=== PATIENT | female | born 1975 | race Caucasian/White ===

== ENCOUNTER → 2016-11-07 | Outpatient (CLI) | payer OTHER ==
[~2016-11-07] MED LIST: ABILIFY5 MG; AMITRIPTYLINE25 MG; CHOLESTEROL MED; COQ(10)1010 MG; CYMBALTA60 MG PO; FIORICET 325 MG1 TAB PO; FLONASE 0.05% 121 EA NAS; FLONASE0.05 MG/AC NS; GABAPENTIN100 M1 PO; HYDROCODONE BIT1 T11 PO; LAMICTAL ODT100 MG MM; LAMICTAL100 MG PO; LAMICTAL200 MG PO; LAMICTAL25 MG PO; LISINOPRIL5 MG PO; LOVASTATIN20 MG PO; NEURONTIN100 MG PO; NEURONTIN300 MG PO; NORVASC5 MG; PHENERGAN W/DM120 ML PO; PREDNICOT10 MG PO; PROAIR HFA0.09 MG/AC INH; TRAD5TAB1 PO; VIBRAMYCIN100 MG PO; VICO75300 PO; VICODIN 500 MG-1 TAB PO; VICTOZA6 MG/ML; WELLBUTRIN SR150 MG; ZITHROMAX Z PA250 MG PO; ZITHROMAX250 MG PO; ZOFRAN ODT4 MG SL; ZOLOFT100 MG PO; ZYRTEC10 M2 PO
[2016-11-07 13:08] LABS: ALBUMIN 3.9 gm/dl (3.1-4.5); ALKALINE PHOSPHATASE 109 U/L (45-117); BILIRUBIN, TOTAL 0.4 mg/dl (0.2-1.0); BUN 12 mg/dl (7-24); CARBON DIOXIDE 25 mmol/L (21-32); CHLORIDE 109 mmol/L (98-107); CHOLESTEROL 182 mg/dL (<200); CPK 94 U/L (26-192); EST GLOM FILT AFRICAN AMERICAN > 60 ml/min; GLUCOSE 102 mg/dL (65-99); HDL CHOLESTEROL 45 mg/dl (40-60); LDL CHOLESTEROL 101 mg/dL (9-159); POTASSIUM 4.1 mmol/L (3.5-5.1); SGOT/AST 14 IU/L (3-35); SGPT/ALT 40 U/L (12-78); SODIUM 144 mmol/L (136-145); TRIGLYCERIDES 178 mg/dl (<150); VLDL CHOLESTEROL 36 mg/dL (6-40)
[2016-11-07 13:41] LABS: HEMOGLOBIN A1c 5.7 % (4.8-5.6)
== END | disposition home or self-care (01) ==
LOC: LAB 12:09
PROVIDERS: Family Medicine
DX: E78.00 Pure hypercholesterolemia, unspecified (principal); E55.9 Vitamin D deficiency, unspecified; E11.9 Type 2 diabetes mellitus without complications

== ENCOUNTER → 2017-02-15 | Outpatient (CLI) | payer OTHER | END | disposition home or self-care (01) | LOC: RAD 10:58 | DX: R05 Cough (principal); F17.200 Nicotine dependence, unspecified, uncomplicated; E11.9 Type 2 diabetes mellitus without complications; I10 Essential (primary) hypertension ==

== ENCOUNTER → 2017-03-04 | Outpatient (CLI) | payer OTHER ==
[2017-03-04 10:41] LABS: HEMOGLOBIN 13.6 g/dl (12.0-16.0); MEAN CELL VOLUME 90.5 fl (81.0-99.0); MEAN CORPUSCULAR HGB CONC 33.2 g/dl (33.0-37.0); MEAN PLATELET VOLUME 10.2 fl (9.6-12.3); RED BLOOD COUNT 4.53 10*6/uL (4.10-5.10); RED CELL DISTRI WIDTH 12.6 % (0-14.5); WHITE BLOOD COUNT 8.5 10*3/uL (4.8-10.8)
[2017-03-04 11:07] LABS: ALBUMIN 3.8 gm/dl (3.1-4.5); ALKALINE PHOSPHATASE 117 U/L (45-117); BUN 10 mg/dl (7-24); CHLORIDE 111 mmol/L (98-107); CHOLESTEROL 176 mg/dL (<200); CREATININE 0.92 mg/dL (0.55-1.02); HDL CHOLESTEROL 43 mg/dl (40-60); LDL CHOLESTEROL 101 mg/dL (9-159); SGOT/AST 11 IU/L (3-35); SGPT/ALT 23 U/L (12-78); SODIUM 143 mmol/L (136-145); TRIGLYCERIDES 159 mg/dl (<150); VLDL CHOLESTEROL 32 mg/dL (6-40)
== END ==
LOC: LAB 02-16 01:23
PROVIDERS: Family Medicine
DX: E78.00 Pure hypercholesterolemia, unspecified (principal); E55.9 Vitamin D deficiency, unspecified; E11.9 Type 2 diabetes mellitus without complications; R05 Cough

== ENCOUNTER → 2017-07-01 | Outpatient (CLI) | payer OTHER ==
[2017-07-01 10:12] LABS: HEMATOCRIT 40.8 % (37.0-47.0); HEMOGLOBIN 13.5 g/dl (12.0-16.0); MEAN CELL VOLUME 90.7 fl (81.0-99.0); MEAN CORPUSCULAR HGB CONC 33.1 g/dl (33.0-37.0); MEAN PLATELET VOLUME 10.4 fl (9.6-12.3); RED BLOOD COUNT 4.5 10*6/uL (4.10-5.10); RED CELL DISTRI WIDTH 13.1 % (0-14.5)
[2017-07-01 10:41] LABS: ALBUMIN 3.7 gm/dl (3.1-4.5); BUN 12 mg/dl (7-24); CHLORIDE 109 mmol/L (98-107); CHOLESTEROL 152 mg/dL (<200); POTASSIUM 3.7 mmol/L (3.5-5.1); SGOT/AST 10 IU/L (3-35); SGPT/ALT 24 U/L (12-78); SODIUM 141 mmol/L (136-145)
[2017-07-01 10:44] LABS: ALKALINE PHOSPHATASE 104 U/L (45-117); CPK 110 U/L (26-192); HDL CHOLESTEROL 44 mg/dl (40-60); LDL CHOLESTEROL 81 mg/dL (9-159); TOTAL PROTEIN 6.8 gm/dL (6.4-8.2); TRIGLYCERIDES 134 mg/dl (<150); VLDL CHOLESTEROL 27 mg/dL (6-40)
== END | disposition home or self-care (01) ==
LOC: LAB 09:33
PROVIDERS: Family Medicine
DX: F41.1 Generalized anxiety disorder (principal); I10 Essential (primary) hypertension; E78.00 Pure hypercholesterolemia, unspecified; E74.09 Other glycogen storage disease

== ENCOUNTER 2017-11-02 14:25 | Emergency (ER) | payer OTHER ==
[~2017-11-02] VITALS: Ht 160 cm; Wt 88.5 kg
[~2017-11-02 14:25] MED LIST changes: -LISINOPRIL5 MG PO; +ZESTRIL10 MG PO
[2017-11-02] MEDS ORDERED: DELTASONE20 M1 PO (14:49)
[2017-11-02] MEDS ORDERED: CLARITIN10 MG PO (14:49)
[2017-11-26] MEDS ORDERED: NEURONTIN800 MG PO (17:45)
[2017-11-26] MEDS ORDERED: CELECOXIB200 MG PO (17:46)
[2017-11-26] MEDS ORDERED: GLUCOPHAGE500 M1 PO (17:46)
[2017-11-26] MEDS ORDERED: TOPAMAX100 M1 PO (17:47)
[2017-11-26] MEDS ORDERED: PROZAC20 MG PO (17:47)
[2017-11-26] MEDS ORDERED: WELLBUTRIN XL300 MG PO (17:47)
[2017-11-26] MEDS ORDERED: TRULICITY1.5 MG/0.5 SC (17:48)
[2017-11-26] MEDS ORDERED: VITAMIN D50000 UNIT PO (17:48)
[2017-11-26] MEDS ORDERED: ADVIL200 M1 PO (17:53)
[2017-11-26] MEDS ORDERED: OMEPRAZOLE40 MG PO (18:12)
== END 2017-11-02 15:10 | disposition home or self-care (01) ==
LOC: ED 14:25
DX: H66.91 Otitis media, unspecified, right ear (principal); H69.81 Other specified disorders of Eustachian tube, right ear; J02.9 Acute pharyngitis, unspecified; R51 Headache; Z88.0 Allergy status to penicillin; Z79.899 Other long term (current) drug therapy

== ENCOUNTER → 2017-11-04 | Outpatient (CLI) | payer OTHER ==
[~2017-11-04] MED LIST changes: +ADVIL200 M1 PO; +CELECOXIB200 MG PO; +CLARITIN10 MG PO; +DELTASONE20 M1 PO; +GLUCOPHAGE500 M1 PO; +NEURONTIN800 MG PO; +OMEPRAZOLE40 MG PO; +PROZAC20 MG PO; +TOPAMAX100 M1 PO; +TRULICITY1.5 MG/0.5 SC; +VITAMIN D50000 UNIT PO; +WELLBUTRIN XL300 MG PO
[2017-11-04 10:40] LABS: HEMATOCRIT 45.6 % (37.0-47.0); HEMOGLOBIN 14.6 g/dl (12.0-16.0); MEAN CELL VOLUME 95.4 fl (81.0-99.0); MEAN CORPUSCULAR HGB 30.5 pg (27.0-31.0); MEAN PLATELET VOLUME 10.1 fl (9.6-12.3); RED BLOOD COUNT 4.78 10*6/uL (4.10-5.10); RED CELL DISTRI WIDTH 13.1 % (0-14.5); WHITE BLOOD COUNT 16.3 10*3/uL (4.8-10.8)
[2017-11-04 11:04] LABS: ALBUMIN 3.9 gm/dl (3.1-4.5); ALKALINE PHOSPHATASE 92 U/L (45-117); BUN 15 mg/dl (7-24); CHLORIDE 109 mmol/L (98-107); CHOLESTEROL 243 mg/dL (<200); CPK 65 U/L (26-192); HDL CHOLESTEROL 52 mg/dl (40-60); LDL CHOLESTEROL 154 mg/dL (9-159); POTASSIUM 3.7 mmol/L (3.5-5.1); SGOT/AST 12 IU/L (3-35); SGPT/ALT 37 U/L (12-78); SODIUM 141 mmol/L (136-145); TOTAL PROTEIN 7.2 gm/dL (6.4-8.2); TRIGLYCERIDES 187 mg/dl (<150); VLDL CHOLESTEROL 37 mg/dL (6-40)
== END | disposition home or self-care (01) ==
LOC: LAB 10:11
PROVIDERS: Family Medicine
DX: E78.00 Pure hypercholesterolemia, unspecified (principal); I10 Essential (primary) hypertension; M19.91 Primary osteoarthritis, unspecified site

== ENCOUNTER → 2017-11-25 | Outpatient (CLI) | payer OTHER ==
[~2017-11-25] MED LIST changes: +NORCO 5-325 TA1 EACH PO
[2017-11-25 10:15] LABS: BASO % 0.4 % (0.0-1.0); EOS # 0.2 10*3/uL (0.0-0.4); EOS % 2.3 % (1.0-4.0); HEMATOCRIT 40.9 % (37.0-47.0); HEMOGLOBIN 13.3 g/dl (12.0-16.0); LYMPH # 2.6 10*3/uL (1.3-4.4); LYMPH % 32.6 % (27.0-41.0); MEAN CORPUSCULAR HGB 30.6 pg (27.0-31.0); MEAN CORPUSCULAR HGB CONC 32.5 g/dl (33.0-37.0); MEAN PLATELET VOLUME 9.7 fl (9.6-12.3); MONO # 0.6 10*3/uL (0.1-1.0); NEUT # 4.7 10*3/uL (2.3-7.9); NEUT % 57.5 % (47.0-73.0); PLATELET COUNT AUTOMATED 292 10*3/uL (130-400); RED BLOOD COUNT 4.35 10*6/uL (4.10-5.10); RED CELL DISTRI WIDTH 12.7 % (0-14.5); WHITE BLOOD COUNT 8.1 10*3/uL (4.8-10.8)
== END | disposition home or self-care (01) ==
LOC: LAB 09:32
PROVIDERS: Family Medicine
DX: D72.829 Elevated white blood cell count, unspecified (principal)

== ENCOUNTER → 2017-12-12 | Day surgery (SDC) | payer OTHER ==
[~2017-12-12] VITALS: Ht 162.5 cm; Wt 86.2 kg
--- NOTE | ~2017-12-12 | O ---
[place], [place] OPERATIVE NOTE NAME: JERMAINE DAVE UNIT #: [id number] ROOM: DOCTOR: PAULIE BATRES MD BIRTHDATE: [birth year] DOS: 12/12/2017 INDICATIONS: This is a 42-year-old lady with a history of a left breast inframammary fold hidradenitis, was here for excision of the hidradenitis. The procedure and its complications were explained to the patient in detail and she agreed to proceed. DESCRIPTION OF PROCEDURE: After identifying the patient, the patient was brought to the operating suite and laid in the supine position. After IV sedation was administered, a timeout procedure was called and the parts were then painted and draped in the usual sterile fashion. There were two separate lesions, both of which were marked in an elliptical fashion with a marking pen. Local anesthesia (1% plain lidocaine) was injected in both these areas. The elliptical incision was made with the help of a knife and the lesions were excised in their entirety and sent for histopathological diagnosis. Thereafter, hemostasis was achieved with the help of electrocautery and the skin edges were approximated with the help of 4-0 Vicryl in a subcuticular running fashion. Dressings were placed. The patient tolerated the procedure well. There were no complications. Dr. Paulie Batres, the attending surgeon, was present throughout the operating case. Paulie Batres MD CM:OPRECORD:OPERATIVE NOTE [id number] PAULIE BATRES MD 12/17/17 1306 interface
[2017-12-12 08:00] VITALS: BP 116/53
[2017-12-12 09:45] VITALS: BP 101/55
[2017-12-12 09:55] VITALS: BP 106/71
[2017-12-12 10:06] VITALS: BP 116/66
[2017-12-12 10:15] VITALS: BP 120/67
[2017-12-12 10:31] VITALS: BP 113/62
== END | disposition home or self-care (01) ==
LOC: SDC 11-26 09:30
DX: L73.2 Hidradenitis suppurativa (principal); I10 Essential (primary) hypertension; E78.5 Hyperlipidemia, unspecified; E11.9 Type 2 diabetes mellitus without complications; J45.909 Unspecified asthma, uncomplicated; K21.9 Gastro-esophageal reflux disease without esophagitis; F32.9 Major depressive disorder, single episode, unspecified; F41.9 Anxiety disorder, unspecified; F17.210 Nicotine dependence, cigarettes, uncomplicated; Z79.899 Other long term (current) drug therapy; Z90.49 Acquired absence of other specified parts of digestive tract; Z88.0 Allergy status to penicillin; Z79.4 Long term (current) use of insulin; Z98.890 Other specified postprocedural states; Z82.49 Family history of ischemic heart disease and other diseases of the circulatory system

== ENCOUNTER → 2018-05-26 | Outpatient (CLI) | payer OTHER ==
[2018-05-26 09:23] LABS: HEMATOCRIT 44.2 % (37.0-47.0); HEMOGLOBIN 14.2 g/dl (12.0-16.0); MEAN CELL VOLUME 96.3 fl (81.0-99.0); MEAN CORPUSCULAR HGB 30.9 pg (27.0-31.0); MEAN CORPUSCULAR HGB CONC 32.1 g/dl (33.0-37.0); MEAN PLATELET VOLUME 9.8 fl (9.6-12.3); RED BLOOD COUNT 4.59 10*6/uL (4.10-5.10); RED CELL DISTRI WIDTH 12.9 % (0-14.5); WHITE BLOOD COUNT 9.3 10*3/uL (4.8-10.8)
[2018-05-26 10:00] LABS: ALBUMIN 3.4 gm/dl (3.1-4.5); ALKALINE PHOSPHATASE 87 U/L (45-117); BUN 16 mg/dl (7-24); CHLORIDE 104 mmol/L (98-107); CHOLESTEROL 267 mg/dL (<200); CREATININE 0.78 mg/dL (0.55-1.02); HDL CHOLESTEROL 49 mg/dl (40-60); LDL CHOLESTEROL 174 mg/dL (9-159); POTASSIUM 4.6 mmol/L (3.5-5.1); SGOT/AST 16 IU/L (3-35); SGPT/ALT 56 U/L (12-78); SODIUM 138 mmol/L (136-145); TRIGLYCERIDES 220 mg/dl (<150); VLDL CHOLESTEROL 44 mg/dL (6-40)
== END | disposition home or self-care (01) ==
LOC: LAB 09:04
PROVIDERS: Family Medicine
DX: I10 Essential (primary) hypertension (principal); E78.00 Pure hypercholesterolemia, unspecified; E55.9 Vitamin D deficiency, unspecified; E74.9 Disorder of carbohydrate metabolism, unspecified

== ENCOUNTER → 2019-01-12 | Outpatient (CLI) | payer OTHER ==
[~2019-01-12] MED LIST changes: +Motrin,Rufen800 MG PO
[2019-01-12 12:21] LABS: HEMATOCRIT 42.8 % (37.0-47.0); HEMOGLOBIN 13.7 g/dl (12.0-16.0); MEAN CELL VOLUME 94.9 fl (81.0-99.0); MEAN CORPUSCULAR HGB 30.4 pg (27.0-31.0); MEAN PLATELET VOLUME 10.2 fl (9.6-12.3); RED BLOOD COUNT 4.51 10*6/uL (4.10-5.10); RED CELL DISTRI WIDTH 12.9 % (0-14.5); WHITE BLOOD COUNT 8.7 10*3/uL (4.8-10.8)
[2019-01-12 12:44] LABS: ALBUMIN 3.5 gm/dl (3.1-4.5); BUN 11 mg/dl (7-24); CHLORIDE 111 mmol/L (98-107); CHOLESTEROL 216 mg/dL (<200); CREATININE 0.88 mg/dL (0.55-1.02); POTASSIUM 3.8 mmol/L (3.5-5.1); SGOT/AST 8 IU/L (3-35); SGPT/ALT 23 U/L (12-78); SODIUM 141 mmol/L (136-145); TOTAL PROTEIN 6.7 gm/dL (6.4-8.2); TRIGLYCERIDES 157 mg/dl (<150); VLDL CHOLESTEROL 31 mg/dL (6-40)
[2019-01-12 12:54] LABS: ALKALINE PHOSPHATASE 90 U/L (45-117); CPK 100 U/L (26-192); HDL CHOLESTEROL 45 mg/dl (40-60); LDL CHOLESTEROL 140 mg/dL (9-159)
== END | disposition home or self-care (01) ==
LOC: LAB 11:47
PROVIDERS: Family Medicine
DX: M54.9 Dorsalgia, unspecified (principal); M25.50 Pain in unspecified joint; E78.00 Pure hypercholesterolemia, unspecified; M19.90 Unspecified osteoarthritis, unspecified site; M79.10 Myalgia, unspecified site

== ENCOUNTER 2019-01-16 20:16 | Emergency (ER) | payer OTHER ==
[~2019-01-16] VITALS: Ht 170.1 cm; Wt 85.3 kg
[~2019-01-16 20:16] MED LIST changes: -Motrin,Rufen800 MG PO
[2019-01-16] MEDS ORDERED: Motrin,Rufen800 MG PO (21:54)
== END 2019-01-16 21:53 | disposition home or self-care (01) ==
LOC: ED 20:16
DX: S93.401A Sprain of unspecified ligament of right ankle, initial encounter (principal); Z88.0 Allergy status to penicillin; Z79.899 Other long term (current) drug therapy; W17.2XXA Fall into hole, initial encounter; Y93.89 Activity, other specified; Y92.096 Garden or yard of other non-institutional residence as the place of occurrence of the external cause; Y99.8 Other external cause status

== ENCOUNTER → 2019-07-06 | Outpatient (CLI) | payer OTHER ==
[~2019-07-06] MED LIST changes: +Motrin,Rufen800 MG PO
[2019-07-06 10:22] LABS: HEMATOCRIT 42.7 % (37.0-47.0); MEAN CELL VOLUME 93.2 fl (81.0-99.0); MEAN CORPUSCULAR HGB 30.6 pg (27.0-31.0); MEAN CORPUSCULAR HGB CONC 32.8 g/dl (33.0-37.0); MEAN PLATELET VOLUME 10.2 fl (9.6-12.3); RED BLOOD COUNT 4.58 10*6/uL (4.10-5.10); RED CELL DISTRI WIDTH 12.5 % (0-14.5); WHITE BLOOD COUNT 7.7 10*3/uL (4.8-10.8)
[2019-07-06 11:06] LABS: ALBUMIN 3.7 gm/dl (3.1-4.5); ALKALINE PHOSPHATASE 87 U/L (45-117); BUN 14 mg/dl (7-24); CHLORIDE 111 mmol/L (98-107); CHOLESTEROL 256 mg/dL (<200); CREATININE 0.94 mg/dL (0.55-1.02); HDL CHOLESTEROL 40 mg/dl (40-60); LDL CHOLESTEROL 178 mg/dL (9-159); POTASSIUM 3.9 mmol/L (3.5-5.1); SGOT/AST 14 IU/L (3-35); SGPT/ALT 48 U/L (12-78); SODIUM 140 mmol/L (136-145); TOTAL PROTEIN 7.1 gm/dL (6.4-8.2); TRIGLYCERIDES 191 mg/dl (<150); VLDL CHOLESTEROL 38 mg/dL (6-40)
== END | disposition home or self-care (01) ==
LOC: LAB 09:58
PROVIDERS: Family Medicine
DX: E11.9 Type 2 diabetes mellitus without complications (principal); E55.9 Vitamin D deficiency, unspecified; E78.00 Pure hypercholesterolemia, unspecified

== ENCOUNTER → 2019-12-22 | Outpatient (CLI) | payer OTHER | END | disposition home or self-care (01) | LOC: COVID19 00:16 | DX: Z11.59 Encounter for screening for other viral diseases (principal) ==

== ENCOUNTER → 2020-03-08 | Outpatient (CLI) | payer OTHER | END | disposition home or self-care (01) | LOC: MAMMO 15:43 | PROVIDERS: ATTEND Nurse Practitioner Women's Health | DX: Z12.31 Encounter for screening mammogram for malignant neoplasm of breast (principal) ==

== ENCOUNTER → 2022-01-23 | Outpatient (CLI) | payer BC, OTHER | END | disposition home or self-care (01) | LOC: MAMMO 17:00 | PROVIDERS: ATTEND Obstetrics & Gynecology | DX: Z12.31 Encounter for screening mammogram for malignant neoplasm of breast (principal); R92.1 Mammographic calcification found on diagnostic imaging of breast ==

== ENCOUNTER → 2023-01-14 | Day surgery (SDC) | payer OTHER ==
[~2023-01-14] VITALS: Ht 160 cm; Wt 79.4 kg
[2023-01-14] VITALS (7 sets, daily range): BP systolic 111–153; BP diastolic 55–76
[~2023-01-14] MED LIST changes: +AMITRIPTYLINE25 MG PO; +ATORVALIQ20 MG/5 ML PO; +LOSARTAN POTASS25 M1 PO; +TOPROL XL25 MG PO; +TRINTELLIX20 MG PO
== END ==
LOC: SDC 01-10 14:00
PROVIDERS: ATTEND Obstetrics & Gynecology
DX: Z30.2 Encounter for sterilization (principal); I10 Essential (primary) hypertension; E11.9 Type 2 diabetes mellitus without complications; E78.5 Hyperlipidemia, unspecified; F32.A Depression, unspecified; R87.612 Low grade squamous intraepithelial lesion on cytologic smear of cervix (LGSIL); N90.7 Vulvar cyst; F17.210 Nicotine dependence, cigarettes, uncomplicated; Z90.49 Acquired absence of other specified parts of digestive tract; Z79.899 Other long term (current) drug therapy

== ENCOUNTER 2023-03-17 16:04 | Emergency (ER) | payer OTHER ==
[~2023-03-17] VITALS: Ht 160 cm; Wt 76.2 kg
[2023-03-17] MEDS ORDERED: CYCLOBENZAPRINE5 M3 PO (16:29)
== END 2023-03-17 16:56 | disposition home or self-care (01) ==
LOC: ED 16:04
DX: M54.16 Radiculopathy, lumbar region (principal); I10 Essential (primary) hypertension; E78.5 Hyperlipidemia, unspecified; F41.9 Anxiety disorder, unspecified; J45.909 Unspecified asthma, uncomplicated; E11.9 Type 2 diabetes mellitus without complications; F32.A Depression, unspecified; E78.00 Pure hypercholesterolemia, unspecified; K21.9 Gastro-esophageal reflux disease without esophagitis; Z88.0 Allergy status to penicillin; Z98.890 Other specified postprocedural states

== ENCOUNTER → 2023-04-06 | Outpatient (CLI) | payer OTHER ==
[~2023-04-06] MED LIST changes: +CYCLOBENZAPRINE5 M3 PO
[2023-04-06 11:04] LABS: HEMATOCRIT 44.6 % (37.0-47.0); MEAN CELL VOLUME 94.5 fl (81.0-99.0); MEAN CORPUSCULAR HGB 31.4 pg (27.0-31.0); MEAN CORPUSCULAR HGB CONC 33.2 g/dl (33.0-37.0); MEAN PLATELET VOLUME 10.4 fl (9.6-12.3); RED BLOOD COUNT 4.72 10*6/uL (4.10-5.10); RED CELL DISTRI WIDTH 13.1 % (0-14.5); WHITE BLOOD COUNT 8.2 10*3/uL (4.8-10.8)
[2023-04-06 11:29] LABS: ALKALINE PHOSPHATASE 90 U/L (46-116); BUN 10 mg/dl (9-23); CHLORIDE 111 mmol/L (98-107); CHOLESTEROL 236 mg/dL (<200); LDL CHOLESTEROL 156 mg/dL (9-159); SGPT/ALT 17 U/L (5-49); TRIGLYCERIDES 94 mg/dl (<150)
== END | disposition home or self-care (01) ==
LOC: LAB 10:48
PROVIDERS: ATTEND Family Medicine
DX: E55.9 Vitamin D deficiency, unspecified (principal); E78.00 Pure hypercholesterolemia, unspecified; R53.83 Other fatigue